=== PATIENT | female | born 1960 | race Hispanic/Latino ===

== ENCOUNTER 2021-10-06 09:41 | Emergency (ER) | payer OTHER ==
--- OUTSIDE RECORDS SUMMARY | 2021-10-06 09:44 | XMS REPORT | Continuity of Care Document ---
:1960 Author Organization [facility] t Address [address] [place] [address] Care Team Providers Name Role Phone UNKNOWN Attending Clinician Unavailable Rhett Avila Attending Clinician Rhett LOWE Attending Clinician Unavailable Doctor Unassigned, Name Attending Clinician Unavailable Radhika KELLER Attending Clinician Unavailable Advance Directives Directive Decision Effective Termination Comments Source Date Date Healthcare Agents on N/A Univ ersity FileNameRelationshipHealthcare [facility] Agent Medical RelationshipCommunicationyW[facility] Care [phone] (Mobile) Problems Condition Condition Condition Status Onset Resolution Last Treating Co mments Source Name Details Category Date Date Treatment Clinician Date Contracept Contracept Disease Active U [facility] tomball antoni antoni 12-18 ity of management management 00:00: [address] Menopausal Menopausal Disease Active U [facility] 12-18 ity of 00:00: [address] Obesity, Obesity, Disease Active Unive rs unspecifie unspecifie 12-18 it y of d d 00:00: [place] classifica classifica 00 Me dical tion, tion, Branch unspecifie unspecifie d obesity d obesity type, type, unspecifie unspecifie d whether d whether serious serious comorbidit comorbidit y present y present Obesity Obesity Disease Active Univers (BMI (BMI 4-27 ity of 30-39.9) 30-39.9) 00:00: [address] Allergies, Adverse Reactions, Alerts Allergy Allergy Status Severity Reaction(s) Onset Inactive Treating Comm ents Source Name Type Date Date Clinician NO KNOWN Drug Active Univers ALLERGIE Class ity of S [facility] Social History Social Habit Start Date Stop Date Quantity Comments Source Sex Assigned At Universit y of [facility] Exposure to Not sure [facility]-CoV-2 [facility] (event) Branch Alcohol intake 2020-05-02 2020-05-02 Current University of 00:00:00 00:00:00 non-drinker of [facility] alcohol Branch (finding) Tobacco use and 2020-05-02 2020-05-02 Never used Universit y of exposure 00:00:00 00:00:00 [facility] Smoking Status Start Date Stop Date Source Never smoker [facility] Medications Ordered Filled Start Stop Current Ordering Indication Dosage Frequency Signature Comments Components Source Medication Medication Date Date Medication? Clinician (SIG) Name Name No known No Univers medications [facility] No known No [facility] No known No Univers medications [facility] No known No Univers medications [facility] No known No Univers medications [facility] Vital Signs Vital Name Observation Time Observation Value Comments Source Diastolic blood 2020-05-02 14:53:00 79 [facility]Hg[facility] rate 2020-05-02 14:53:00 65 /min [facility] Body temperature 2020-05-02 14:53:00 36.78 Lesvia [facility] Respiratory rate 2020-05-02 14:53:00 16 /min [facility] Body height 2020-05-02 14:53:[address] [facility] Body weight 2020-05-02 14:53:[address] [facility] BMI 2020-05-02 14:53:00 34.33 kg/m2 [facility] Systolic blood 2020-05-02 14:53:00 131 mm[Hg] [facility] Procedure Date / Time Performed Performing Clinician Sourc e ASSIGNMENT OF BENEFITS 2020-05-02 14:19:46 Doctor Unassigned, No University [facility] Name Medical Branch Encounters Start End Encounter Admission Attending Care Care Encounter Source Date/Time Date/Time Type Type Clinicians Facility Department ID 2021-04-12 2021-04-12 Outpatient [facility] [id number] Univers 15:30:00 15:30:00 [id number] [facility] 2021-04-12 2021-04-12 Outpatient R UNKNOWN, [facility] [id number] Univers 15:30:00 15:30:00 ATTENDING ity of [facility] 2020-06-05 2020-06-05 Hospital [facility] [id number] Univers 06:31:50 23:59:00 Encounter Douglas Delaney SPECIALTY [id number] ity of [facility] [phone] [place] mejia BOSCH 5 [facility] 2020-06-05 2020-06-05 Outpatient R [facility] [id number] Univers 11:00:00 11:00:00 DOUGLAS [id number] rahel o [facility] 2020-06-05 2020-06-05 Outpatient R [facility] [id number] Univers 00:00:00 00:00:00 DOUGLAS mcginnis o f [facility] 2020-05-02 2020-05-02 Office [facility] [id number] Univers 09:41:23 10:19:27 Visit Douglas Delaney [employer]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 [facility] [id number] Ashvin as [id number] [address] 2020-03-27 2020-03-27 [facility] [id number] Univers 08:00:00 08:00:00 DANIELE mcginnis o [facility] 2020-03-27 2020-03-27 Outpatient R [facility] [id number] Univers 07:30:00 07:30:00 mariyay [facility] 2020-03-05 2020-03-05 Outpatient R KRISHNA [facility] [id number] Univers 10:00:00 10:00:00 DANIELE [id number] mariya o [facility] 2020-03-05 2020-03-05 [facility] [id number] Univers 10:00:00 10:00:00 [facility] 2020-02-15 2020-02-15 Outpatient R AKINVELMA, [facility] [id number] Univers 08:15:00 08:15:00 D[facility]GLAS [id number] [facility] 2020-02-15 2020-02-15 Outpatient R CHRISSY, [facility] [id number] Univers 08:15:00 08:15:00 [facility] 2020-02-02 2020-02-02 Telephone [facility] [id number] Univers 00:00:00 00:00:00 Douglas Delaney [employer]S PROJECT ENGINEER [id number] [facility] [id number] Ashvin as MATERNAL [id number] Med ical & CHILD [address] [place] [address] - [place] Results This patient has no known results.
[2021-10-06 10:11] LABS: Absolute Lymphocytes (CBC) 2.2 K/uL (0.7-4.9); Hematocrit 40.3 % (36.0-45.0); Lymphocytes % 37.6 % (15.3-44.8); MPV 8.4 fL (7.6-11.3); RBC Red Blood Cell Count 4.62 M/uL (3.86-4.86)
--- NOTE | 2021-10-06 10:21 | RAD REPORT ---
EXAM DESCRIPTION: RAD - Chest Single View - 10/06/2021 10:13 am CLINICAL HISTORY: CHEST PAIN COMPARISON: None TECHNIQUE: AP portable chest image was obtained 10/06/2021 10:13 am . FINDINGS: Lungs are clear. Heart and vasculature are normal. No measurable pleural effusion and no p neumothorax. No acute bony abnormality seen. No acute aortic findings suspected. IMPRESSION: No acute cardiopulmonary process.
[2021-10-06 10:27] LABS: Albumin 3.6 g/dL (3.4-5.0); Bilirubin Direct 0.2 mg/dL (0-0.2); Bilirubin Total 0.5 mg/dL (0.2-1.0); Magnesium 2.2 mg/dL (1.8-2.4); Troponin High Sensitivity 4.9 pg/mL (<58.9)
[2021-10-06 10:31] LABS: Protime INR 0.88
--- NOTE | 2021-10-06 11:03 | RAD REPORT ---
EXAM DESCRIPTION: CT - Head Brain Wo Cont - 10/06/2021 10:53 am CLINICAL HISTORY: Pain and tingling in left arm COMPARISON: No comparisons TECHNIQUE: Axial 5 mm thick images of the head were obtained without IV contrast. All CT scans are performed using dose optimization technique as appropriate and may include automated exposure control or mA/KV adjustment according to patient size. FINDINGS: No intracranial hemorrhage, mass, edema or shift of mid-line structures. No acute infarcti on changes seen. No abnormal extra-axial fluid collections. Ventricles are normal. Prominent perivasc ular space noted on the left along the lateral margin of the thalamus and lentiform nucleus. Mastoid air cells and visualized portions of the paranasal sinuses are clear. No acute bony findings. IMPRESSION: Negative non-contrast CT head examination.
[2021-10-06] MEDS ORDERED: MORPHINE 2 MG/ML SYR ONE (11:04)
[2021-10-06] MEDS ORDERED: ONDANSETRON 4 MG/2 ML VIAL ONE (11:04)
--- NOTE | 2021-10-06 11:59 | ER ---
Nurse's Notes [facility] Name: Candis Garcia Age: 61 yrs Sex: Female : 1960 Arrival Date: 10/06/2021 Time: 09:47 Bed 15 Private MD: Diagnosis: Chest pain on breathing;Chest pain, unspecified-Chest wall Presentation: 10/06 09:49 Chief complaint: Patient's son or daughter states: Left sided CP 4 days ago, another jl7 episode yesterday and another this morning, each episode lasting about 10 minutes, radiates to left shoulder, arm and posterior shoulder and mid back. Coronavirus screen: At this time, the client does not indicate any symptoms associated with coronavirus-19. Ebola Screen: No symptoms or risks identified at this time. Initial Sepsis Screen: Does the patient meet any 2 criteria? No. Patient's initial sepsis screen is negative. Does the patient have a suspected source of infection? No. Patient's initial sepsis screen is negative. Risk Assessment: Do you want to hurt yourself or someone else? Patient reports no desire to harm self or others. Onset of symptoms was October 02, 2021. 09:49 Method Of Arrival: Ambulatory jl7 09:49 Acuity: BRIGIDA 2 jl7 Triage Assessment: 09:52 General: Appears in no apparent distress. uncomfortable, Behavior is calm, cooperative, jl7 appropriate for age. Pain: Complains of pain in anterior aspect of left upper chest Pain radiates to back and left arm Pain currently is 8 out of 10 on a pain scale. Cardiovascular: Reports chest pain, Patient's skin is warm and dry. Historical: - Allergies: 09:52 No Known Allergies; jl7 - Home Meds: 09:52 None [Active]; jl7 - PMHx: 09:52 None; jl7 - PSHx: 09:52 Cholecystectomy; jl7 - Immunization history:: Client reports receiving the 2nd dose of the Covid vaccine, Pfizer. - Social history:: Smoking status: Patient denies any tobacco usage or history of. Screenin:00 Abuse screen: Denies threats or abuse. Nutritional screening: No deficits noted. jh6 Tuberculosis screening: No symptoms or risk factors identified. Fall Risk None identified. Assessment: 10:10 Pain: Complains of pain in anterior aspect of left upper chest and mid-sternal area jh6 Pain began 2-3 days ago. 10:28 General: Appears in no apparent distress. Behavior is cooperative, Reports fatigue for jh6 2-3 days. 10:28 Pain: Complains of pain in left clavicle and anterior aspect of left upper chest Pain jh6 currently is 5 out of 10 on a pain scale. Cardiovascular: Reports chest pain. 11:30 Reassessment: No changes from previously documented assessment. Patient and/or family jh6 updated on plan of care and expected duration. Pain level reassessed. 12:15 Reassessment: Patient denies pain at this time. Patient states feeling better. Pain: jh6 Denies pain. Vital Signs: 09:49 BP 135 / 79; Pulse 71; Resp 17; Temp 97.7; Pulse Ox 100% ; Weight 79.38 kg; Height 5 jl7 ft. 4 in. (162.56 cm); Pain 8/10; 10:12 BP 106 / 62; Pulse 67; Resp 18; Pulse Ox 100% ; jh6 11:00 BP 108 / 54; Pulse 66; Resp 18; Pulse Ox 99% ; Pain 5/10; jh6 12:00 BP 98 / 56; Pulse 62; Resp 17; Pain 0/10; jh6 09:49 Body Mass Index 30.04 (79.38 kg, 162.56 cm) jl7 ED Course: 09:47 Patient arrived in ED. jj6 09:50 Bhavik Reddy MD is Attending Physician. kdr 09:52 Triage completed. jl7 09:52 Arm band placed on right wrist. jl7 09:54 EKG done, by ED staff, reviewed by Bhavik Reddy MD. dh3 10:00 Inserted saline lock: 20 gauge in left antecubital area, using aseptic technique. Blood jh6 collected. 10:05 Nell Luna, LORENE is Primary Nurse. jh6 10:11 Patient has correct armband on for positive identification. Placed in gown. Bed in low mh5 position. Call light in reach. Side rails up X 1. Adult w/ patient. Warm blanket given. radiation monitor on. Pulse ox on. NIBP on. 10:11 Basic Metabolic Panel Sent. 5 10:11 Basic Metabolic Panel Sent. 5 10:12 XRAY Chest (1 view) In Process Unspecified. EDMS 10:12 Initial lab(s) drawn, by ED staff, sent to lab. 5 10:13 Patient maintains SpO2 saturation greater than 95% on room air. jh6 10:[address] jh6 10:53 CT Head Brain wo Cont In Process Unspecified. EDMS 12:16 IV discontinued, intact, bleeding controlled, No redness/swelling at site. Pressure jh6 dressing applied. Administered Medications: 11:00 Drug: morphine 2 mg Route: IVP; Site: right antecubital; 6 11:17 Follow up: Response: Pain is decreased jh6 11:00 Drug: Zofran (Ondansetron) 4 mg Route: IVP; Site: right antecubital; 6 11:17 Follow up: Response: No adverse reaction 6 Outcome: 11:59 Discharge ordered by . kdr 12:17 Discharged to home ambulatory. jh6 12:17 Condition: good 12:17 Discharge instructions given to patient, Instructed on discharge instructions, Demonstrated understanding of instructions, follow-up care, medications, Prescriptions given X 1. 12:18 Patient left the ED. 6 Signatures: Dispatcher [employer] EDMS Bhavik Reddy MD MD kdr Martinez, Maria 5 Sophie Sprague, RN RN jl7 Dasia Zavaleta 3 Nell Andino jj6 Nell Luna, RN RN jh6 Corrections: (The following items were deleted from the chart) 12:18 12:00 BP 102 / 56; Pulse 17bpm; Resp 62bpm; Pain 0/10; 6 6
--- NOTE | 2021-10-06 11:59 | EDPHYS ---
Physician Documentation [facility] Name: Candis Garcia Age: 61 yrs Sex: Female : 1960 Arrival Date: 10/06/2021 Time: 09:47 Bed 15 Private MD: ED Physician Bhavik Reddy HPI: 10/06 18:18 This 61 yrs old Female presents to ER via Ambulatory with complaints of Chest kdr Pain, Chest Tightness. 18:18 The patient or guardian reports chest pain that is located primarily in the anterior kdr chest wall, left. Onset: suddenly, 3 day(s) ago. The pain radiates to Left arm it may or may not be associated with chest pain. Associated signs and symptoms: The patient has no apparent associated signs or symptoms. The chest pain is described as aching, sharp. Duration: The patient or guardian reports multiple episodes, that are intermittent, that wax and wane, with no pattern. Severity of pain: At its worst the pain was mild moderate today, in the emergency department the pain has improved markedly. The patient has experienced similar episodes in the past, a few times. The patient has not recently seen a physician. Historical: - Allergies: 09:52 No Known Allergies; jl7 - Home Meds: 09:52 None [Active]; jl7 - PMHx: 09:52 None; jl7 - PSHx: 09:52 Cholecystectomy; jl7 - Immunization history:: Client reports receiving the 2nd dose of the Covid vaccine, Pfizer. - Social history:: Smoking status: Patient denies any tobacco usage or history of. ROS: 18:19 Constitutional: Negative for fever, chills, and weight loss, Eyes: Negative for injury, kdr pain, redness, and discharge, Neck: Negative for injury, pain, and swelling, Respiratory: Negative for shortness of breath, cough, wheezing, and pleuritic chest pain, Abdomen/GI: Negative for abdominal pain, nausea, vomiting, diarrhea, and constipation, Back: Negative for injury and pain, : Negative for injury, bleeding, discharge, and swelling, MS/Extremity: Negative for injury and deformity, Skin: Negative for injury, rash, and discoloration, Neuro: Negative for headache, weakness, numbness, tingling, and seizure activity. Psych: Negative for depression, anxiety, suicide ideation, homicidal ideation, and hallucinations, Allergy/Immunology: Negative for hives, rash, and allergies, Endocrine: Negative for neck swelling, polydipsia, polyuria, polyphagia, and marked weight changes, Hematologic/Lymphatic: Negative for swollen nodes, abnormal bleeding, and unusual bruising. 18:19 Cardiovascular: Positive for chest pain, Negative for edema, orthopnea, palpitations, paroxysmal nocturnal dyspnea. Exam: 10:34 ECG was reviewed by the Attending Physician. kdr 18:19 Constitutional: This is a well developed, well nourished patient who is awake, alert, kdr and in no acute distress. Head/Face: Normocephalic, atraumatic. Eyes: Pupils equal round and reactive to light, extra-ocular motions intact. Lids and lashes normal. Conjunctiva and sclera are non-icteric and not injected. Cornea within normal limits. Periorbital areas with no swelling, redness, or edema. Neck: Trachea midline, no thyromegaly or masses palpated, and no cervical lymphadenopathy. Supple, full range of motion without nuchal rigidity, or vertebral point tenderness. No Meningismus. Chest/axilla: Normal chest wall appearance and motion. Nontender with no deformity. No lesions are appreciated. Cardiovascular: Regular rate and rhythm with a normal S1 and S2. No gallops, murmurs, or rubs. Normal PMI, no JVD. No pulse deficits. Respiratory: Lungs have equal breath sounds bilaterally, clear to auscultation and percussion. No rales, rhonchi or wheezes noted. No increased work of breathing, no retractions or nasal flaring. Abdomen/GI: Soft, non-tender, with normal bowel sounds. No distension or tympany. No guarding or rebound. No evidence of tenderness throughout. Back: No spinal tenderness. No costovertebral tenderness. Full range of motion. Skin: Warm, dry with normal turgor. Normal color with no rashes, no lesions, and no evidence of cellulitis. MS/ Extremity: Pulses equal, no cyanosis. Neurovascular intact. Full, normal range of motion. Neuro: Awake and alert, GCS 15, oriented to person, place, time, and situation. Cranial nerves II-XII grossly intact. Motor strength 5/5 in all extremities. Sensory grossly intact. Cerebellar exam normal. Normal gait. Psych: Awake, alert, with orientation to person, place and time. Behavior, mood, and affect are within normal limits. Vital Signs: 09:49 BP 135 / 79; Pulse 71; Resp 17; Temp 97.7; Pulse Ox 100% ; Weight 79.38 kg; Height 5 jl7 ft. 4 in. (162.56 cm); Pain 8/10; 10:12 BP 106 / 62; Pulse 67; Resp 18; Pulse Ox 100% ; jh6 11:00 BP 108 / 54; Pulse 66; Resp 18; Pulse Ox 99% ; Pain 5/10; jh6 12:00 BP 98 / 56; Pulse 62; Resp 17; Pain 0/10; jh6 09:49 Body Mass Index 30.04 (79.38 kg, 162.56 cm) jl7 MDM: 11:59 Patient medically screened. kdr 18:19 Data reviewed: vital signs, nurses notes, lab test result(s), radiologic studies. kdr Counseling: I had a detailed discussion with the patient and/or guardian regarding: the historical points, exam findings, and any diagnostic results supporting the discharge/admit diagnosis, lab results, radiology results, the need for outpatient follow up. 10/06 09:50 Order name: Basic Metabolic Panel kdr 10/06 09:50 Order name: CBC with Diff; Complete Time: 11:05 kdr 10/06 09:50 Order name: LFT's; Complete Time: 11:05 kdr 10/06 09:50 Order name: Magnesium; Complete Time: 11:05 kdr 10/06 09:50 Order name: NT PRO-BNP; Complete Time: 11:05 kdr 10/06 09:50 Order name: PT-INR; Complete Time: 11:05 kdr 10/06 09:50 Order name: Troponin HS; Complete Time: 11:05 kdr 10/06 09:50 Order name: XRAY Chest (1 view); Complete Time: 11:05 kdr 10/06 09:50 Order name: EKG; Complete Time: 09:51 kdr 10/06 09:50 Order name: Cardiac monitoring; Complete Time: 10:05 kdr 10/06 09:51 Order name: Basic Metabolic Panel; Complete Time: 11:05 EDMS 10/06 10:23 Order name: CT Head Brain wo Cont; Complete Time: 11:05 kdr 10/06 09:50 Order name: EKG - Nurse/Tech; Complete Time: 09:56 kdr 10/06 09:50 Order name: IV Saline Lock; Complete Time: 10:05 kdr 10/06 09:50 Order name: Labs collected and sent; Complete Time: : kdr 10/06 09:50 Order name: O2 Per Protocol; Complete Time: 10:06 kdr 10/06 09:50 Order name: O2 Sat Monitoring; Complete Time: 10: [facility] EC:34 Rate is 72 beats/min. Rhythm is regular, Normal Sinus Rhythm with No ectopy. QRS [place] kdr is Normal. MD interval is normal. QRS interval is normal. QT interval is normal. Clinical impression: Normal ECG. Administered Medications: 11:00 Drug: morphine 2 mg Route: IVP; Site: right antecubital; [facility] 11:17 Follow up: Response: Pain is decreased [facility] 11:00 Drug: Zofran (Ondansetron) 4 mg Route: IVP; Site: right antecubital; [facility] 11:17 Follow up: Response: No adverse reaction [facility] Disposition Summary: 10/06/21 11:59 Discharge Ordered Location: Home kdr Problem: new kdr Symptoms: have improved kdr Condition: Stable kdr Diagnosis - Chest pain on breathing kdr - Chest pain, unspecified - Chest wall kdr Followup: kdr - With: Private Physician - When: 2 - 3 days - Reason: If symptoms return, Further diagnostic work-up, Recheck today's complaints, Continuance of care, Re-evaluation by your physician Discharge Instructions: - Discharge Summary Sheet kdr - Chest Wall Pain, [id number] kdr - Nonspecific Chest Pain, Adult, [id number] kdr Forms: - Medication Reconciliation Form kdr - Thank You Letter kdr Prescriptions: - Ibuprofen 600 mg Oral Tablet - take 1 tablet by ORAL route every 8 hours As needed take with food; 12 tablet; kdr Refills: 0, Product Selection Permitted Signatures: Dispatcher [employer] Bhavik Townsend MD MD kdr Leal, Jahala RN RN jl7 Nell Luna RN RN jh6
[2021-10-06 12:33] VITALS: TEMP 97.7
[2021-10-06 12:36] VITALS: O2SAT 99
[2021-10-06 12:37] VITALS: BP 98/56
== END 2021-10-06 12:18 | disposition home or self-care (01) ==
LOC: ER 09:41
DX: R07.89 Other chest pain (principal)
CPT/HCPCS: 93005; 85025; 80048; 36415; 83735; 85610; 80076; 84484; 83880; 70450; 71045; 96375; 96374; 99285; J2270; J2405

== ENCOUNTER 2021-12-31 09:55 | Day surgery (SDC) | payer OTHER ==
[2021-12-27 09:20] LABS: Absolute Lymphocytes (CBC) 1.9 K/uL (0.7-4.9); Hematocrit 41.1 % (36.0-45.0); Lymphocytes % 36.6 % (15.3-44.8); MPV 9.1 fL (7.6-11.3); RBC Red Blood Cell Count 4.73 M/uL (3.86-4.86)
[2021-12-27 09:33] LABS: Protime INR 0.95
[2021-12-31] MEDS ORDERED: Ringers Lactate 1,000 ML IV ONE ×2 (10:23→14:16)
[2021-12-31] MEDS ORDERED: CEFAZOLIN/SWI 2gm 2 GM/20 ML SYR ONE (10:54)
[2021-12-31] MEDS ORDERED: ACETAMINOPHEN 500 MG TAB ONE (11:21)
[2021-12-31] MEDS ORDERED: CELECOXIB 100 MG CAPSULE ONE (11:21)
[2021-12-31] MEDS ORDERED: propofoL 200 MG/20 ML VIAL IV ONE (11:37)
[2021-12-31] MEDS ORDERED: FENTANYL CITR 100 MCG/2 ML ONE (11:38)
[2021-12-31] MEDS ORDERED: LIDOCAINE 2% MPF 5 ML VIAL ONE (11:38)
[2021-12-31] MEDS ORDERED: dexAMETHasone 10 MG/ML VIAL ONE (11:38)
[2021-12-31] MEDS ORDERED: KETOROLAC 30 MG/ML INJ ONE (11:38)
[2021-12-31] MEDS ORDERED: MIDAZOLAM HCL 2 MG/2 ML INJ ONE (11:39)
[2021-12-31] MEDS ORDERED: ONDANSETRON 4 MG/2 ML VIAL ONE (11:39)
[2021-12-31] MEDS ORDERED: ROCURONIUM 50 MG/5 ML VIAL IV ONE (11:49)
[2021-12-31] MEDS ORDERED: NA CHLORIDE 0.9% 100 ML IV ONE (12:13)
[2021-12-31] MEDS ORDERED: LIDOCAINE 1% W/EPI 1:100,000 MDV 50 ML VIAL ONE (12:13)
[2021-12-31] MEDS ORDERED: VASOPRESSIN 20 UNIT/ML VIAL ONE (12:13)
[2021-12-31] MEDS ORDERED: CEFAZOLIN SODIUM 1 GM/VIAL ONE (12:13)
[2021-12-31] MEDS ORDERED: GLYCOPYRROLATE 0.2 MG/ML SYR ONE ×2 (13:32→15:29)
[2021-12-31] MEDS ORDERED: NS 0.9% VIAL 10 ML ONE (13:51)
[2021-12-31] MEDS ORDERED: VECURONIUM 10 MG/VIAL IV ONE (13:52)
[2021-12-31] MEDS ORDERED: NEOSTIGMINE 1 MG/ML -10 ML VIAL ONE (15:30)
[2021-12-31] MEDS ORDERED: PROMETHAZINE INJ 25 MG/ML AMP IV PRN (15:32)
[2021-12-31] MEDS ORDERED: MORPHINE 2 MG/ML SYR IV PRN (15:32)
[2021-12-31] MEDS ORDERED: ACETAMINOPHEN 500 MG TAB PO PRN (15:32)
--- NOTE | 2021-12-31 15:39 | P.BOP ---
Preoperative diagnosis: post wall stage 2 defect, perineocele SP Postoperative diagnosis: same , post enterocele, RML episiotomy scar Primary procedure: Posterior wall, enterocele, perineocele defect repair, MUS (T-O) cysto Secondary procedure: vaginal USLScolpopexy Systems Architecture Analyst: Janel Khalil Estimated blood loss: 100 Specimen: none Findings: -2/-3/-8/5/thi/8/0/+2/-7, perineocele, RML+midline episiotomy scars Anesthesia: General Complications: None Drain(s): Urinary catheter Implants: BOOGIE sling Transferred to: Recovery Room Condition: Good
[2021-12-31 16:00] VITALS: O2SAT 100
[2021-12-31] MEDS: Ringers Lactate 1,000 ML IV SCH (17:29)
[2021-12-31 18:30] VITALS: BMI 29.2
[2021-12-31] MEDS ORDERED: MELATONIN 5 MG TABLET PO SCH (21:00)
[2021-12-31] MEDS: IBUPROFEN 600 MG TAB PO PRN (22:03)
[2022-01-01] MEDS: Ringers Lactate 1,000 ML IV SCH (01:22)
[2022-01-01 06:14] LABS: Absolute Lymphocytes (CBC) 1.5 K/uL (0.7-4.9); Hematocrit 32.7 % (36.0-45.0); Lymphocytes % 13.6 % (15.3-44.8); MPV 8.9 fL (7.6-11.3); RBC Red Blood Cell Count 3.78 M/uL (3.86-4.86)
[2022-01-01 08:47] VITALS: BP 99/46; TEMP 97.3
[2022-01-01] MEDS ORDERED: CRANBERRY FRUIT EXTRACT 400 MG CAP PO SCH (09:00)
[2022-01-01] MEDS: IBUPROFEN 600 MG TAB PO PRN (09:04)
--- NOTE | 2022-01-01 15:23 | OP ---
Date of Procedure: 12/31/2021 Surgeon: Cassie Hummel MD [facility] Nurse: Janel Khalil. Preoperative Diagnoses: Posterior wall stage II defect, stage III defect, perineocele, and stress ur inary incontinence. Postoperative Diagnoses: Posterior wall stage II defect, stage III defect, perineocele, and stress u rinary incontinence. Posterior enterocele, right mediolateral episiotomy, scarring and apical detach ment of the posterior wall. Primary Procedure: Posterior wall repair, posterior enterocele repair, perineocele defect repair, mi d-urethral sling, cystoscopy. Secondary Procedure: Vaginal uterosacral ligament suspension, colpopexy. Anesthesia: General. Ebl: 100. Specimens: None. Complications: None. Drains: Dias catheter. Implants: BOOGIE sling. Urine Output: 500. Findings: POP-Q -2, -3, -8, 5, posterior enterocele was significant with complete detachm ent due to a transverse defect at the top from the cervix, significant right mediolateral episiotomy and midline episiotomy scars which made the perineocele significantly difficult to repair. The medio lateral episiotomy scar had to be revised in order for me to find the continuity of the tissues for r econstruction. There was also detachment of the posterior wall from the left distal-lateral sulcus a ttachment and from the perineal body. Indication: The patient is a 61-year-old female, who presented with prolapse symptoms and SP, evalu ated in the office and discussed all the options, wanted surgical repair after understanding all the conservative methods including pelvic floor and physical therapy, Kegel. She was then consented for posterior wall repair, perineocele repair, and for her SP, a mid-urethral sling understanding all [facility] complications including bleeding, infection, injury to the adjacent organs with fistula, urinary re tention, obstruction, revision, groin pain, etc. Description Of Procedure: After re-consenting her in the preoperative area, she was taken back to [facility] OR, placed in supine fashion, and after general anesthesia was given, she was placed in dorsal lith otomy position using [place] stirrups. Lower abdomen, vulva, vagina, and perineum were prepped and draped in a sterile fashion. Dias was p laced to drain the bladder and clamped and retracted superiorly. 2 g of Ancef were given. SCDs were started. A time-out was done and procedure started. The posterior defect was evaluated after a vaginal exam. Plan was to perform a site-specific defect repair of the attachment of the apex to the uterosacral li gaments as this was a central defect at the apex in the posterior wall, but the superior aspect of th e posterior wall from the apex. So, a uterosacral colpopexy was preferred making sure that this was continued and reattached to the apical transverse defect of the rectovaginal septum and the defect wa s also to be specifically repaired at the region of the left lower lateral wall, the sulcus, and then at the level reattached to the perineal body after reconstructing. Allis clamps were placed both at the remnant of the hymenal ring as well as the lateral aspects of th e bulbocavernosus detachment on the right side and on the left. Then, in the midline posterior wall where there was significant evulsion of the rectovaginal septum. Dilute vasopressin was injected, 30 cc, in the midline on the perineum and then lateral wall. Then, an oval incision was made starting in the distal third of the posterior wall coming down to the level of the vestibule and a triangular incision was made on the perineum, inverted triangle. These 2 edges were nicely connected. Then, Allis clamps were placed on either side at the level of the perineum and then the posterior wal l of the rectovaginal septum was and rectovaginal septum was dissected free from the vagina l epithelium on the top all the way to identify the apical part of the transverse defect, and posteri or enterocele was dissected all the way down to the level of the cervix. Once this was done, distall y, the perineal body was dissected. There was hardly any perineal body in the center other than from the scar tissue from the mediolateral episiotomy, and laterally, dissected all the way to expose the remnant of the bulbocavernosus all the way to the left lateral sulcus, here, the levators were also palpated and the detachment of the left distal-lateral wall was easily identifiable through the recto vaginal exam. Then, on the perineum, the perineal skin was dissected away and then the perineal body , deep transverse perinei remnants were identified easily on the left side, but on the right side, it was difficult. The right mediolateral episiotomy scar had to be dissected and trimmed in order for me to be able to find the lateral connecting tissues. Once this was all done and laid out, skin was dissected free from the underlying tissues. The anal sphincter was intact and no need for sphincter repair was noted. Then, we went all the way up to the top, and after identifying the cervix in the pericervical ring, u terosacral ligaments were held with the help of Allis clamps on each side and these were reattached o ne more time to the cervix and then detachments were started to the proximal posterior wall connectiv e tissue. 2-0 PDS was taken in a continuous running fashion. Sutures were placed from the middle of the superi or part of the rectovaginal septum to the cervix, then went on to place 2 stitches from the uterosacr al ligament in the cervix and then back into the rectovaginal septum on the immediate lateral aspect of the cervix, so that this was pulled up to the uterosacral and reattached, which also reconstructed the entire attachment of the posterior wall. Then, PDS sutures were taken and placed all the way in the lateral wall on the left to the sulcus, so that this tear was repaired. There was no tear on the right side other than a tiny little one where the episiotomy scars were dissected and this was reattached. The perineal body was reconstructed by bringing together the lateral edges of the deep transverse per inei and the remnant of the bulbocavernosus. Sutures were placed in 2 layers and these were simple 2 -0 Vicryl sutures in interrupted fashion. Once all these sutures were placed and there was excellent reconstruction, which was confirmed with a rectovaginal exam, the posterior perineal body was reatta ched with PDS to the perineal body. The vaginal epithelium was slightly trimmed, maybe less than 0.5 cm on each side just to bring togeth er epithelial edges without dog-ear. There was not an intent to trim the excess epithelium. It was nicely integrated together and closure with 0 Vicryl started in a continuous running fashion a ll the way to the area above the hymen, then the underlying tissues from the vestibular area was brou ght together with the help of a running 3-0 Vicryl suture. Then, the perineal reconstruction was don e in a subcutaneous and subcuticular fashion all the way back to the level of the hymen and suture ti ghtened with a 3-0 Monocryl. Rectal exam without any injury to any of the rectal tissues. No levato r plication was done. There was at least 3 fingerbreadths, fingers spaced apart, of vaginal diameter and this was optimal without creating any bridge at the level of the perineum. No mid-canal stenosis and good length. Attention was directed to the mid-urethral sling. Mid-urethral area was picked up with the help of A llis clamps, injected with dilute vasopressin in the central and lateral aspects. Dissection with a 1 cm incision was made in the mid-urethra between the connective tissues and the underlyin g bladder neck going laterally at a 45-degree angle to the horizontal and vertical planes hugging the anterior pubic ramus into the obturator space. Once the obturator membrane was perforated, the trac t was widened. Similar dissection was performed on both sides without any problems. Then, placed a wing guide and a BOOGIE sling was loaded and then passed from an inside hugging the inferior pubic ramus and exiting at a level slightly higher than the external urethral meatus, 2 cm lateral to the groin fold, the exit point with mesh on the opposite side. Initially, the was used s o the exit point was slightly lower. This was switched to the regular needle and the exit point was optimal, matching the opposite side, avoiding the adductor tendon, and once the mesh was t ensioned with the Allis clamp laying flat without any rolling, in the center, the sling was trimmed o n the sides. It was made sure that it was neither too loose nor too tight at the level of the urethr a, it was mid-urethral in location. Thorough irrigation was performed. Closure of the epithelium wi th 3-0 Vicryl in a continuous horizontal mattress fashion was done. There was good closure without a ny exposure. Dias was removed and cystoscopy was performed. We made sure that the lateral angles o f the . Bladder was drained. Dias was replaced. A vaginal packing was placed. Instrume nt, needle, and sponge counts were correct at the end of the case x3. She was recovered from anesthe casey and taken to PACU in stable condition. Urine output as mentioned above. She will be admitted overnight for observation and she will see me back in 1 week. NITHIN/ZORAN Voice ID: [id number] Report ID: [id number]
== END 2022-01-01 11:40 | disposition home or self-care (01) ==
LOC: OR 09:55 → 2ND-WC 16:55 → OR 01-01 11:40
PROVIDERS: ATTEND Obstetrics & Gynecology
PROC: 0HQ9XZZ Repair Perineum Skin, External Approach (ICD-10-PCS; 2021-12-31)
PROC: 0TSD0ZZ Reposition Urethra, Open Approach (ICD-10-PCS; 2021-12-31)
PROC: 0USG7ZZ Reposition Vagina, Via Natural or Artificial Opening (ICD-10-PCS; 2021-12-31)
PROC: 0JQC0ZZ Repair Pelvic Region Subcutaneous Tissue and Fascia, Open Approach (ICD-10-PCS; principal; 2021-12-31 11:15)
DX: N81.6 Rectocele (principal); N95.2 Postmenopausal atrophic vaginitis; N39.3 Stress incontinence (female) (male); N32.81 Overactive bladder; N81.81 Perineocele; N81.84 Pelvic muscle wasting; N81.2 Incomplete uterovaginal prolapse; Z20.822 Contact with and (suspected) exposure to COVID-19
CPT/HCPCS: 85025 ×2; 80048; 36415 ×2; 86900; 86850; 85610; 86901; 85730; 94010; 57250; 57288; 57283; U0003; J2704; J2710; J2550; J2250; J3010; J1100; J2270; J0690 ×2; J7120 ×4; J2405

== ENCOUNTER 2024-12-02 06:47 | Day surgery (SDC) | payer OTHER ==
[2024-11-29 13:35] LABS: Absolute Eosinophils 0.1 K/uL (0-0.5); Absolute Lymphocytes (CBC) 2.1 K/uL (0.7-4.9); Absolute Monocytes 0.4 K/uL (0.1-1.3); Absolute Neutrophil 3.8 K/uL (1.8-8.0); Basophils % 0.7 % (0-1.3); Eosinophils % 2.1 % (0-4.4); Hemoglobin 13.9 g/dL (12.0-15.0); Lymphocytes % 32.2 % (15.3-44.8); MCH 29.4 pg (27.0-35.0); MCHC 33.9 g/dL (32.0-36.0); MCV 86.6 fL (80-100); MPV 8.7 fL (7.6-11.3); Platelets 237 thou/uL (152-406); RBC Red Blood Cell Count 4.73 M/uL (3.86-4.86); Red Cell Distribution Width 14.3 % (12.1-15.2)
[2024-11-29 13:48] LABS: Anion Gap 6.6 mEq/L (5.0-15.0); Potassium 4.6 mEq/L (3.5-5.1)
--- NOTE | 2024-11-30 12:00 | EKG ---
Test Date: 2024-11-29 Test Time: 13:13:47 [employer] Superintendent: NELLIE MEASUREMENT RESULTS: Intervals: Rate: 68 NM: 120 QRSD: 80 QT: 386 QTc: 410 Renick: P: 54 NM: 120 QRS: 40 T: 34 INTERPRETIVE STATEMENTS: Normal sinus rhythm Normal ECG Compared to ECG 10/06/2021 09:54:40 No significant changes Electronically Signed On 11-30-24 11:57:43 CDT by Gregorio Masters
[2024-12-02] MEDS ORDERED: Ringers Lactate 1,000 ML IV ONE (07:06)
[2024-12-02] MEDS ORDERED: LIDOCAINE 1% MPF 30 ML VIAL ONE (07:51)
[2024-12-02] MEDS ORDERED: propofoL 200 MG/20 ML VIAL IV ONE (07:51)
[2024-12-02 10:27] VITALS: O2SAT 99
[2024-12-02 10:31] VITALS: BP 100/65; TEMP 97
== END 2024-12-02 09:45 | disposition home or self-care (01) ==
LOC: OR 06:47
PROVIDERS: ATTEND Surgery
PROC: 0DJD8ZZ Inspection of Lower Intestinal Tract, Via Natural or Artificial Opening Endoscopic (ICD-10-PCS; principal; 2024-12-02 08:00)
DX: Z12.11 Encounter for screening for malignant neoplasm of colon (principal); K64.4 Residual hemorrhoidal skin tags; Z86.0100 Personal history of colon polyps, unspecified
CPT/HCPCS: 93005; 85025; 80048; 36415; 45378; J2704; J2003; J7120